=== PATIENT | female | born 1930 | race Caucasian/White ===

== ENCOUNTER 2017-09-14 19:53 | Emergency (ER) | END 2017-09-14 23:43 | disposition home or self-care (01) ==

== ENCOUNTER 2017-11-23 23:40 | Inpatient (IN) | END 2017-11-25 11:15 | disposition home or self-care (01) | DRG 641 ==

== ENCOUNTER 2018-08-24 04:55 | Inpatient (IN) | payer MEDICARE, OTHER ==
[~2018-08-24] VITALS: Ht 152.4 cm; Wt 49.0 kg
[~2018-08-24 04:55] MED LIST: ALBU8.5H8 INH; ALEN70TA5 PO; ASPI-535 PO; BCL80INH INH; CALC-67 PO; DOCU-144 PO; ERGO500014 PO; FER325 PO; FOLI-49 PO; PRED5TAB PO; REMI IV; SIMV10TA PO
[2018-08-24] MEDS ORDERED: ONDANSETRON 4 MG INJ IV STA (05:10)
[2018-08-24] MEDS ORDERED: SOD CHLORIDE 0.9% 1,000 ML IV STA (05:10)
--- NOTE | 2018-08-24 06:15 | ERD ---
ER Documentation Chief Complaint Chief Complaint n/v/d x 3 days, total body pain, severe HPI 88-year-old female with a history of asthma, rheumatoid arthritis, osteoarthritis, hyperlipidemia and hyponatremia presents to the ED for evaluation of total body pain and generalized weakness. History is supplemented by the patient's granddaughter. Patient was her usual state of health until a week ago when she suffered from a fall at home without head injury or loss of consciousness and did not seek medical attention as she felt well. Subsequently she began to have nausea, nonbloody, nonbilious emesis and watery diarrhea for several days but no abdominal pain. Diarrhea resolved with Imodium and there is no further vomiting but continues to be nauseated with decreased p.o. intake. Now with increasing generalized malaise and weakness. Denies headache, focal weakness or numbness. Denies chest pain, palpitations, shortness of breath, cough or hemoptysis. Denies dysuria, polyuria, hematuria or flank pain. No fevers or chills. ROS All systems reviewed and are negative except as per history of present illness. Medications Home Meds Active Scripts Levofloxacin* (Levofloxacin*) 750 Mg Tablet, 750 MG PO DAILY, #7 TAB Prov:AILYN VALDEZ MD 08/27/18 Reported Medications Docusate Sodium* (Doc-Q-Lace*) 100 Mg Capsule, 100 MG PO DAILY, CAP 08/24/18 Ondansetron Hcl* (Zofran*) 4 Mg Tablet, 4 MG PO TID, TAB 08/24/18 Omeprazole* (Omeprazole*) 20 Mg Capsule.dr, 20 MG PO DAILY, #30 CAP 08/24/18 Prednisone* (Prednisone*) 5 Mg Tab, 5 MG PO DAILY, TAB 08/24/18 Folic Acid* (Folic Acid*) 1 Mg Tablet, 1 MG PO DAILY, TAB 08/24/18 Ferrous Sulfate* (Ferrous Sulfate*) 325 Mg Tabec, 325 MG PO BID, TAB 08/24/18 Ergocalciferol (Vitamin D2) (VITAMIN D2) 50,000 Unit Capsule, 96726 UNIT PO Q MON, CAP 08/24/18 Aspirin* (Aspirin* EC) 81 Mg Tablet.dr, 81 MG PO DAILY, TAB 08/24/18 Losartan-Hydrochlorothiazide (Losartan-HCTZ) 50-12.5 Mg Tab, 1 TAB PO DAILY, TAB 08/24/18 Discontinued Reported Medications Infliximab (Remicade) 100 Mg Soln, 100 MG IV 11/23/17 Alendronate Sodium* (Fosamax*) 70 Mg Tablet, 70 MG PO Q7D, #4 TAB 11/23/17 Prednisone* (Prednisone*) 5 Mg Tab, 5 MG PO DAILY, TAB 11/23/17 Ferrous Sulfate* (Ferrous Sulfate*) 325 Mg Tabec, 325 MG PO BID, TAB 11/23/17 Aspirin Ec (Aspir 81) 81 Mg Tablet.dr, 81 MG PO DAILY, #30 TAB 11/23/17 Calcium Carbonate/Vitamin D3* (Os-Tate 500+D*) 1 Tab Tablet, 1 TAB PO BID, TAB 07/19/15 Beclomethasone Dip (Qvar 80) 1 Puff Inha, 1 PUFF INH BID, #1 INHALER RINSE MOUTH AFTER EACH USE 07/19/15 Folic Acid* (Folic Acid*) 1 Mg Tablet, 1 MG PO DAILY, TAB 07/19/15 Ergocalciferol* (Drisdol* (Vitamin D2)) 50,000 Unit Capsule, 12344 UNIT PO Q7D, CAP take 1 tablet by mouth once a week (every Mondays) 07/19/15 Simvastatin* (Zocor*) 10 Mg Tablet, 10 MG PO QHS, #30 TAB 07/19/15 Albuterol Sulfate* (Proair HFA*) 8.5 Gm Hfa.aer.ad, 2 PUFF INH Q4H PRN for WHEEZING AND SOB, #1 INHALER 07/19/15 Discontinued Scripts Docusate Sodium* (Colace*) 100 Mg Capsule, 100 MG PO TID, #30 CAP Prov:STACIE QUINONES MD 07/24/15 Allergies Allergies: Coded Allergies: No Known Allergy (Unverified , 08/24/18) PMhx/Soc Reviewed in chart. As per HPI. History of Surgery: Yes (cholecystectomy, bilateral knee replacement ) Anesthesia Reaction: No Hx Neurological Disorder: No Hx Respiratory Disorders: Yes (asthma) Hx Cardiac Disorders: Yes (HTN) Hx Psychiatric Problems: No Hx Miscellaneous Medical Probl: No Hx Alcohol Use: No Hx Substance Use: No Hx Tobacco Use: No Smoking Status: Never smoker FmHx No family history relevant to presenting complaint. Physical Exam Vitals Temp: 99.9. Pulse: 103. Respirations: 21. Blood pressure 94/51. O2 saturation 99%. Physical Exam Const: Elderly female, ill-appearing in moderate distress. Head: Atraumatic Eyes: Normal Conjunctiva ENT: Normal External Ears, Nose and Mouth. Mucous membranes are dry. Neck: Full range of motion. No JVD. Nontender. No meningismus. Resp: Breath sounds are diminished especially at the bases left greater than right with crackles but no wheezing. Cardio: Tachycardic. Regular rate and rhythm, no murmurs Abd: Soft, non tender, non distended. No rebound or guarding. Normal bowel sounds Skin: No petechiae or rashes Back: No midline or flank tenderness Ext: No cyanosis, or edema Neur: Awake and alert. No facial droop. Normal speech. No focal deficit observed. Psych: Normal Mood and Affect Result Diagram: 08/27/18 0557 08/27/18 0557 Results 24 hrs Laboratory Tests Test 08/24/18 05:50 08/24/18 05:52 08/24/18 06:54 08/24/18 07:33 Prothrombin Time 12.8 Sec Prothrombin Time 1.0 Ratio INR International 0.95 Normalized Ratio Activated 26.4 Sec Partial Thrombopl ast Time White Blood Count 24.9 10^3/ul Red Blood Count 3.81 10^6/ul Hemoglobin 11.9 g/dl Hematocrit 33.3 % Mean Corpuscular 87.4 fl Volume Mean Corpuscular 31.2 pg Hemoglobin Mean Corpuscular 35.7 g/dl Hemoglobin Concen t Red Cell 13.3 % Distribution Width Platelet Count 220 10^3/UL Mean Platelet 11.0 fl Volume Immature 1.300 % Granulocytes % Neutrophils % % Segmented 80 % Neutrophils % (Manual) Band Neutrophils 8 % % (Manual) Lymphocytes % % Lymphocytes % 4 % (Manual) Monocytes % % Monocytes % 8 % (Manual) Eosinophils % % Basophils % % Nucleated Red 0.0 /100WBC Blood Cells % Immature 0.320 10^3/ul Granulocytes # Neutrophils # 10^3/ul Neutrophils # 20.4 10^3/ul (Manual) Band Neutrophils 1.9 10^3/ul # Lymphocytes 0.9 10^3/ul (Manual) Lymphocytes # 10^3/ul Monocytes # 10^3/ul Monocytes # 1.9 10^3/ul (Manual) Eosinophils # 10^3/ul Basophils # 10^3/ul Nucleated Red 10^3/ul Blood Cells # Platelet Estimate NORMAL Polychromasia 1+ Poikilocytosis 3+ Sodium Level 123 mmol/L Potassium Level 3.9 mmol/L Chloride Level 85 mmol/L Carbon Dioxide 24 mmol/L Level Anion Gap 14 Blood Urea 66 mg/dl Nitrogen Creatinine 1.85 mg/dl Est Glomerular mL/min Filtrat Rate mL/min Glucose Level 96 mg/dl Calcium Level 7.5 mg/dl Total Bilirubin 0.8 mg/dl Direct Bilirubin 0.00 mg/dl Indirect 0.8 mg/dl Bilirubin Aspartate Amino 35 IU/L Transf (AST/SGOT) Alanine 54 IU/L Aminotransferase (ALT/SGPT) Alkaline 152 IU/L Phosphatase Total Protein 7.2 g/dl Albumin 3.2 g/dl Globulin 4.00 g/dl Albumin/Globulin 0.80 Ratio Lipase 110 U/L Free Thyroxine 2.39 ng/dl Urine Color YELLOW Urine Clarity CLEAR Urine pH 5.0 Urine Specific 1.009 [place] Urine Ketones NEGATIVE mg/dL Urine Nitrite NEGATIVE mg/dL Urine Bilirubin NEGATIVE mg/dL Urine NEGATIVE mg/dL Urobilinogen Urine Leukocyte NEGATIVE Armaan/ul Esterase Urine Microscopic 1 /HPF RBC Urine Microscopic 1 /HPF WBC Urine Hemoglobin 1+ mg/dL Urine Glucose NEGATIVE mg/dL Urine Total NEGATIVE mg/dl Protein POC Venous 2.0 mmol/L Lactate Test 08/24/18 07:53 Lactic Acid Level 2.3 mmol/L Troponin I 0.021 ng/ml Current Medications Medications Dose Sig/Tiffany Start Time Status Last (Trade) Ordered Route PRN Stop Time Admin Dose Reason Admin Sodium 1,000 ml @ Q1H STAT 08/24/18 DC 08/24/18 Chloride 1,000 mls/hr IV 05:10 06:04 08/24/18 06:09 Ondansetron 4 mg ONCE STAT 08/24/18 DC 08/24/18 HCl (Zofran IV 05:10 06:04 Inj) 08/24/18 05:12 Sodium 1,410 ml BOLUS OVER 2 08/24/18 DC 08/24/18 Chloride HOURS STAT 07: 07:46 (NS) IV* 08/24/18 07:21 Sodium 1,370 ml BOLUS OVER 2 08/24/18 DC 08/24/18 Chloride HOURS STAT 07:19 07:47 (NS) IV* 08/24/18 07:21 Cefepime HCl 50 ml @ ONCE STAT 08/24/18 DC 08/24/18 100 mls/hr IVPB 07:19 07:47 08/24/18 07:48 Vancomycin 250 ml @ ONCE ONCE 08/24/18 DC 08/24/18 HCl 125 mls/hr IVPB 07:30 08:17 08/24/18 09:29 100 mg ONCE ONCE 08/24/18 DC 08/24/18 Hydrocortison IV 09:00 09:00 e 08/24/18 09:01 (Solu-Cortef) Procedures/MDM DOCUMENTS REVIEWED: ED nurse, prior ED, prior records EKG: Time: . Sinus tachycardia. Ventricular rate 103. No acute ST elevation or depression. No ectopy. No axis deviation. Interpretation is limited due to baseline artifact. My Interpretation IMAGING: Chest AP portable. Cardiac silhouette is normal. Bibasilar infiltrates left greater than right with small left greater than right pleural effusion. Aortic calcifications. MEDICAL DECISION MAKIN-year-old female with a history of asthma, rheumatoid arthritis, osteoarthritis, hyperlipidemia and hyponatremia presents to the ED for evaluation of total body pain and generalized weakness. CBC reveals leukocytosis with a percent bands Mild anemia with H/H 11.9/33.3. Chemistry significant for hyponatremia with markedly elevated BUN/creatinine of 66/1.85 markedly increased from 5/0.61 on 11/25/2017. Liver function tests are unremarkable for hyperbilirubinemia or transaminitis. Troponin is not elevated. Tpwhi-ue-ngvy lactate is 2.0 however lactate from the lab was 2.3 mmol/L. Urinalysis shows no evidence of infection. Chest x-ray reveals bibasilar infiltrates consistent with pneumonia. Patient with multiple criteria for systemic inflammatory syndrome and severe sepsis secondary to pneumonia. No h ypotension, lactate greater than 4.0 mmol/L or criteria for septic shock. Within 3 hours of arrival bundle therapy initiated with normal saline 30 cc/kg fluid bolus and antibiotics after cultures. Abdominal exam is benign without significant tenderness, rebound, guarding, signs of peritonitis and occult intra-abdominal process hence advanced imaging is deferred. No evidence of urinary tract infection or pyelonephritis. Acute renal failure with markedly elevated BUN/creatinine above baseline likely secondary to dehydration. No chest pain, ischemic EKG changes, elevated troponin or acute coronary syndrome. is stress dose of steroids, Solu-Cortef 100 mg IV given as patient is immunosuppressed on chronic steroid therapy and Infliximab. Patient's infectious symptoms have not stabilized and the patient is at risk of rapid decompensation. The patient will be admitted to telemetry for careful hydration, antibiotic therapy, and infectious source control. SEPSIS DOCUMENTATION: SIRS Criteria: Tachycardia, tachypnea and leukocytosis Severe Sepsis criteria: Infectious source: Pneumonia End organ damage indicated by: Lactate > 2.0 mmol/L Sepsis Management: Time of recognition of severe sepsis: 07:53 Within 3 hours of recognition: Blood cultures x 2 before broad-spectrum antibiotics: Yes 30 ml/kg NS bolus Completed Initial lactate 2.3 mmol/L Repeat lactate 1.0 mmol/L Septic Shock Assessment: Any lactic acid > 4.0 No Persistent hypotension (SBP < 90 or 40 mmHg drop, MAP < 65) despite 30 mL/kg IV fluid bolus: No A focused sepsis perfusion/reperfusion reassessment examination was performed post 30ml/kg bolus @09:15: Temp 98.2, BP 97/61, HR 84, RR 18, Pox 99% Persistent Hypotension Treatment: Comfort care No Hypotension caused by: pt. baseline, med-induced, erroneous value, condition other than infection: No Refusal by patient/decision maker for: blood draw, IVF, Antibiotics, Pressors: No Central line Not indicated Vasopressor started No Accepting Care Team Current data and ongoing care discussed. PATIENT CARE TRANSITIONED: Time: 09:40, Dr. Kay. Outstanding Data: None Critical Care Time: 35 minutes Treatments/Evaluations: Close monitoring and treatment of unstable vital signs, cardiorespiratory, and neurologic status, while maintaining tight balance of fluid, respiratory, and cardiac interventions. This includes the administration of emergency fluid management while maintaining close respiratory support as well as the provision of immediate and broad-spectrum antibiotic therapy, while performing a simultaneous assessment for possible sources in order to direct targeted therapy. This time includes discussing the case with the patient and the patient's family. This time also includes the consideration for invasive and chemical support to prevent cardiopulmonary collapse. This time does not include all procedures stated elsewhere in this record. This time also includes reviewing old records, labs and radiological studies. This time includes examining and re-examining the patient. Additionally, this time also includes arranging care with admitting and consulting physicians. Counseled patient and family regarding diagnosis, diagnostic results and plan for admission. Departure Diagnosis: Primary Impression: Weakness Additional Impressions: Severe sepsis Pneumonia Pneumonia type: due to unspecified organism Laterality: bilateral Lung location: lower lobe of lung Qualified Codes: J18.1 - Lobar pneumonia, unspecified organism Acute kidney injury Dehydration Nausea and vomiting Vomiting type: unspecified Vomiting Intractability: non-intractable Qualified Codes: R11.2 - Nausea with vomiting, unspecified Immunosuppressed status Rheumatoid arthritis Rheumatoid arthritis location: multiple sites Rheumatoid factor presence: unspecified presence Qualified Codes: M06.9 - Rheumatoid arthritis, u nspecified Condition: Serious SHIRLEY HERRON MD August 24, 2018 06:15
[2018-08-24] MEDS ORDERED: CEFEPIME 2GM/50 ML (PMX) 50 ML IVPB STA (07:19)
[2018-08-24] MEDS ORDERED: SODIUM CHLORIDE 0.9% 1L BAG IV* STA ×2 (07:19)
[2018-08-24] MEDS ORDERED: VANCOMYCIN 1 GM (PMX) 250 ML IVPB ONE (07:30)
[2018-08-24] MEDS ORDERED: HYDROCORTISONE 100 MG INJ IV ONE (09:00)
[2018-08-24] MEDS ORDERED: ONDANSETRON 4 MG INJ IV PRN (10:00)
[2018-08-24] MEDS ORDERED: ACETAMINOPHEN 325 MG TAB PO PRN ×2 (10:00→13:30)
[2018-08-24] MEDS ORDERED: ASPI-817 PO (10:17)
[2018-08-24] MEDS ORDERED: LOSA1TAB22 PO (10:17)
[2018-08-24] MEDS ORDERED: FER325 PO (10:18)
[2018-08-24] MEDS ORDERED: FOLI-49 PO (10:18)
[2018-08-24] MEDS ORDERED: ERGO500013 PO (10:18)
[2018-08-24] MEDS ORDERED: PRED5TAB PO (10:19)
[2018-08-24] MEDS ORDERED: ONDA4TAB8 PO (10:19)
[2018-08-24] MEDS ORDERED: OMEP20CA16 PO (10:19)
[2018-08-24] MEDS ORDERED: DOCU-221 PO (10:20)
--- NOTE | 2018-08-24 13:17 | HP ---
Date/Time of Note Date/Time of Note DATE: 08/24/18 TIME: 13:13 Assessment/Plan VTE Prophylaxis SCD applied (from Nsg): No SCD contraindicated: other Pharmacological prophylaxis: heparin Lines/Catheters IV Catheter Type (from Nrsg): Saline Lock Assessment/Plan Hospital Course Assessment plan: 88-year-old female coming in with weakness diarrhea, nausea vomiting for the last 3 to 4 days, found with renal insufficiency and systemic inflammatory response syndrome secondary to upper respiratory infection. # SIRS -likely secondary to pneumonia which is causing her weakness and dehydration symptoms along with likely her nausea vomiting symptoms. -Admit patient, low-dose IV fluids, broad-spectrum antibodies, follow-up TSH A1c lipid panel -We will get PT OT and speech therapy consult as well, Tylenol PRN pain fevers -Monitor labs daily including CBC #Rheumatoid arthritis: -Continue steroids, monitor for now, PT consult #Asthma: No present issues -Monitor, duo nebs as needed #Osteoporosis: No present issues -PT, OT eval, pain medicines as needed #Likely high cholesterol: -Follow-up with panel, continue statin Result Diagram: 08/24/18 0552 08/24/18 0552 Results 24hrs Laboratory Tests Test 08/24/18 05:50 08/24/18 05:52 08/24/18 06:54 08/24/18 07:33 Prothrombin Time 12.8 Prothrombin Time 1.0 Ratio INR International 0.95 Normalized Ratio Activated 26.4 Partial Thromboplast Time White Blood Count 24.9 #H Red Blood Count 3.81 L Hemoglobin 11.9 L Hematocrit 33.3 L Mean Corpuscular 87.4 Volume Mean Corpuscular 31.2 Hemoglobin Mean Corpuscular 35.7 Hemoglobin Concent Red Cell 13.3 Distribution Width Platelet Count 220 Mean Platelet Volume 11.0 H Immature 1.300 H Granulocytes % Neutrophils % Segmented 80 H Neutrophils % (Manual) Band Neutrophils % 8 H (Manual) Lymphocytes % Lymphocytes % 4 L (Manual) Monocytes % Monocytes % (Manual) 8 Eosinophils % Basophils % Nucleated Red Blood 0.0 Cells % Immature 0.320 H Granulocytes # Neutrophils # Neutrophils # 20.4 H (Manual) Band Neutrophils # 1.9 H Lymphocytes (Manual) 0.9 Lymphocytes # Monocytes # Monocytes # (Manual) 1.9 H Eosinophils # Basophils # Nucleated Red Blood Cells # Platelet Estimate NORMAL Polychromasia 1+ Poikilocytosis 3+ Sodium Level 123 L Potassium Level 3.9 Chloride Level 85 L Carbon Dioxide Level 24 Anion Gap 14 H Blood Urea Nitrogen 66 H Creatinine 1.85 H Est Glomerular Filtrat Rate mL/min Glucose Level 96 Calcium Level 7.5 L Total Bilirubin 0.8 Direct Bilirubin 0.00 Indirect Bilirubin 0.8 Aspartate Amino 35 Transf (AST/SGOT) Alanine 54 Aminotransferase (AL T/SGPT) Alkaline Phosphatase 152 H Total Protein 7.2 Albumin 3.2 L Globulin 4.00 H Albumin/Globulin 0.80 Ratio Lipase 110 Urine Color YELLOW Urine Clarity CLEAR Urine pH 5.0 Urine Specific 1.009 [place] Urine Ketones NEGATIVE Urine Nitrite NEGATIVE Urine Bilirubin NEGATIVE Urine Urobilinogen NEGATIVE Urine Leukocyte NEGATIVE Esterase Urine Microscopic 1 RBC Urine Microscopic 1 WBC Urine Hemoglobin 1+ H Urine Glucose NEGATIVE Urine Total Protein NEGATIVE POC Venous Lactate 2.0 Test 08/24/18 07:53 Lactic Acid Level 2.3 *H Troponin I 0.021 HPI/ROS Admit Date/Time Admit Date/Time Hx of Present Illness 80-year-old female past medical history hard of hearing, rheumatoid arthritis, also arthritis, prior hyponatremia, high cholesterol, asthma who presents with weakness and dehydration along with nausea vomiting for the last 4 days. Per family member, patient apparently fell at home last Sunday as she lives by herself she called her granddaughter who came and watched her for the another day or so. Patient took medications over the next 3 days such as Advil with minimal relief of symptoms. She also had decreased p.o. intake and decreased appetite for the last 1 to 2 days and also had some diarrhea. Family gave her Imodium with some relief of those symptoms. Patient was still feeling weak overall so decided to come into the ER. When she arrived she was found with elevated white blood cell count 24.3. Also showing signs of renal insufficiency as creatinine was significantly elevated. She received some IV fluids, pain control medications, and IV antibiotics in the ER. PMH/Family/Social Past Medical History Medications Current Medications Ondansetron HCl (Zofran Inj) 4 mg ER BRIDGE PRN IV NAUSEA/VOMITING; Start 08/24/18 at 10:00; Stop 08/25/18 at 09:59 Acetaminophen (Tylenol Tab) 650 mg ER BRIDGE PRN PO .MILD PAIN 1-3 OR TEMP; Start 08/24/18 at 10:00; Stop 08/25/18 at 09:59 Coded Allergies: No Known Allergy (Unverified , 08/24/18) Past Surgical History Past Surgical Hx: cholecystectomy, other (Bilateral knee replacement) Family History Significant Family History: no pertinent family hx Social History Alcohol Use: none Smoking Status: Never smoker Drug Use: none Exam/Review of Systems Vital Signs Vitals Vital Signs Date Temp Pulse Resp B/P (MAP) Pulse Ox O2 O2 Flow FiO2 Time Delivery Rate 08/24/18 91 17 97/61 (73) 99 Room Air 10:23 08/24/18 98.2 09:01 Exam Exam Gen: Lying in bed, no acute distress Head: Atraumatic Eyes: Normal Conjunctiva ENT: Normal External Ears, Nose and Mouth. Neck: Full range of motion. No meningismus. Resp: Clear to auscultation bilaterally Cardio: Regular rate and rhythm, no murmurs Abd: Soft, non tender, non distended. Normal bowel sounds Ext: No cyanosis, or edema Neuro: No focal deficits MIRIAM CARLSON August 24, 2018 13:17
[2018-08-24] MEDS ORDERED: HYDROCODONE/APAP (5/325) TAB PO PRN (13:30)
[2018-08-24] MEDS ORDERED: LORAZEPAM 2 MG INJ IV PRN (13:30)
[2018-08-24] MEDS ORDERED: hydrALAzine 20 MG INJ IV PRN (13:30)
[2018-08-24] MEDS ORDERED: VANCOMYCIN IV PER PHARMACY XX SCH (13:30)
[2018-08-24] MEDS ORDERED: NITROGLYCERIN (SL) 0.4 MG TAB SL PRN (13:30)
[2018-08-24] MEDS ORDERED: DOCUSATE SODIUM 100 MG CAP PO PRN (13:30)
[2018-08-24] MEDS ORDERED: morphine 2 MG INJ IV PRN (13:30)
[2018-08-24] MEDS ORDERED: MAGNESIUM HYDROXIDE 30ML CUP PO PRN (13:30)
[2018-08-24] MEDS ORDERED: NACL 0.9% 3 ML SYG IV SCH (13:30)
[2018-08-24] MEDS ORDERED: ALBUTEROL/IPRATROPIUM (NEB) 3 ML AMP HHN PRN (13:30)
[2018-08-24] MEDS: PIPER-TAZO 2.25 GM (PMX) 50 ML IVPB SCH ×2 (14:12→21:21)
[2018-08-24 16:09] VITALS: BP 96/53; PULSE 92; RESP 18
[2018-08-24 16:11] VITALS: Ht 152.4 cm; Wt 49.0 kg
[2018-08-24] MEDS: SOD CHLORIDE 0.45% 1,000 ML IV SCH (16:42)
[2018-08-24 17:01] VITALS: PULSE 88
[2018-08-24] MEDS ORDERED: PENDING SANTYL ORDER FOR WOUND CARE XX PRN (18:30)
[2018-08-24 19:55] VITALS: BP 111/70; PULSE 89; RESP 17
[2018-08-24 20:49] VITALS: PULSE 88
[2018-08-24] MEDS: FERROUS SULFATE (EC) 325 MG TAB PO SCH (21:21)
[2018-08-24] MEDS: HEPARIN 5,000 UNIT/1 ML VIAL SC SCH (21:22)
[2018-08-25] VITALS (12 sets, daily range): BP systolic 93–112; BP diastolic 52–69; PULSE 65–87; RESP 16–18
[2018-08-25] MEDS: SOD CHLORIDE 0.45% 1,000 ML IV SCH ×3 (02:29→20:00)
[2018-08-25] MEDS: PIPER-TAZO 2.25 GM (PMX) 50 ML IVPB SCH ×3 (05:45→20:34)
[2018-08-25] MEDS: PANTOPRAZOLE (EC) 40 MG TAB PO SCH (06:15)
[2018-08-25] MEDS: ASPIRIN (EC) 81 MG TAB PO SCH (08:04)
[2018-08-25] MEDS: FERROUS SULFATE (EC) 325 MG TAB PO SCH ×2 (08:04→20:34)
[2018-08-25] MEDS: FOLIC ACID 1 MG TAB PO SCH (08:05)
[2018-08-25] MEDS: predniSONE 5 MG TAB PO SCH (08:05)
[2018-08-25] MEDS: HEPARIN 5,000 UNIT/1 ML VIAL SC SCH ×2 (08:10→20:36)
[2018-08-25] MEDS ORDERED: POTASSIUM CHLORIDE (SR) 20 MEQ TAB PO STA (08:58)
[2018-08-25] MEDS ORDERED: NON-FORMULARY/PATIENT OWN MED (Omeprazole* 20 MG) PO SCH (09:00)
[2018-08-25] MEDS ORDERED: POTASSIUM CHLORIDE 20 MEQ POWDER FOR ORAL SOLN PO SCH (09:30)
[2018-08-25] MEDS: VANCOMYCIN 500 MG (PMX) 100 ML IVPB SCH (11:11)
[2018-08-25] MEDS: ONDANSETRON 4 MG INJ IV PRN (12:28)
--- NOTE | 2018-08-25 13:58 | RADRPT ---
Echocardiogram Report Patient Name: CORTNEY SHEPHERDPatient ID: [id number] : 1930 (88y 2m)Study Date: 08/25/2018 10:43:52 AM Gender: FAccession #: [id number] Tech: [facility] [place] Location: Ref.Physician: MIRIAM CARLSON Height(Cm): 152 BSA: 1.4Weight(Kg): 46.7 Quality: Technically Difficult StudyAccount #: Procedures: Echocardiographic Report: Transthoracic echocardiogram with 2D, M-Mode, and Doppler examination, poor subcostal images. Indications: Shortness of breath. Measurements: 2D/M Mode Doppler Measurement Value Normal Range Measurement Value Normal Range LVIDd 2D 3.1 [ 3.8 - 5.2 ] cm PRAKASH VTI 1.8 [ 2.0 - 4.0 ] cm2 LVIDs 2D 1.9 [ 2.2 - 3.5 ] cm AV Mean Lexa 1.5 [ 70.0 - 90.0 ] cm/sec LVPWd 2D 1.0 [ 0.6 - 0.9 ] cm AV Mean PG 10.0 [ 2.0 - 4.0 ] mmHg IVSd 2D 1.0 [ 0.6 - 0.9 ] cm AV VTI 44.9 cm AoR Diam 2D 2.9 [ 2.3 - 3.1 ] cm LVOT Mean Lexa 0.7 [ 60.0 - 80.0 ] cm/sec EDV 2D 38.5 [ 46.0 - 106.0 ] ml LVOT Mean PG 3.0 [ 1.0 - 3.0 ] mmHg ESV 2D 10.9 [ 14.0 - 42.0 ] ml LVOT Peak Lexa 1.1 [ 70.0 - 110.0 ] cm/sec EF 2D 71.7 [ 54.0 - 74.0 ] percent LVOT Peak PG 5.0 [ 2.0 - 6.0 ] mmHg LA Dimen 2D 2.1 [ 2.7 - 3.8 ] cm LVOT VTI 25.1 [ 20.0 - 30.0 ] cm LVOT Diam 2.0 [ 2.1 - 2.5 ] cm MV E Peak Lexa 1.1 [ 60.0 - 130.0 ] cm/sec MV A Peak Lexa 0.7 [ 100.0 - 120.0 ] cm/se c MV E/A 1.6 [ 0.8 - 1.5 ] ratio MV PHT 70.0 [ 20.0 - 100.0 ] msec MV Decel Time 240 [ 104 - 258 ] msec MV Decel Kay 5 Lat E` Lexa 0.1 [ 10.0 - 15.0 ] cm/sec Lateral E/E` 18.5 [ 1.0 - 2.0 ] ratio Med E` Lexa 0.0 cm/sec MV E/A 1.6 [ 0.8 - 1.5 ] ratio MVA PHT 3.1 [ 2.0 - 4.0 ] cm2 TR Peak Lexa 2.5 [ 100.0 - 280.0 ] cm/se c TR Peak PG 25.0 mmHg PV Peak Lexa 1.0 [ 40.0 - 80.0 ] cm/sec PV Peak PG 4.0 mmHg RVSP 35.0 [ 10.0 - 36.0 ] mmHg RA Pressure 10.0 mmHg Findings: Left Ventricle: Normal left ventricular systolic function. Normal left ventricular cavity size. Mild concentric left ventricular hypertrophy. Ejection fraction is visually estimated at 70 %. Tissue Doppler/Mitral Doppler indices are most probably consistent with pseudonormalization with mildly elevated left atrial pressure (Stage II diastolic dysfunction), patient did not Valsalva. E/E'= 19. Right Ventricle: Normal right ventricular size. Normal right ventricular systolic function. Left Atrium: The left atrium is normal in size. Right Atrium: The right atrium is normal in size. Atrial Septum: Not well visualized. Mitral Valve: Mild mitral leaflet calcification. Mild mitral annular calcification, mild calcification on chordal structures noted as well. Trace mitral regurgitation. Aortic Valve: Mild aortic stenosis. Aortic valve Max velocity 2.20 m/sec. Max PG 19.00 mmHg. Mean PG 10.00 mmHg. Aortic valve area 1.70 cm2. Aortic cusps appear mildly calcified. Trileaflet aortic valve. Tricuspid Valve: Normal appearance of the tricuspid valve. Estimated peak PA systolic pressure 35 mmHg. There is mild tricuspid regurgitation. Pulmonic Valve: Normal pulmonic valve appearance. No evidence of pulmonic regurgitation. Pericardium: Normal pericardium with no significant pericardial effusion. Pleural effusion seen. Aorta: Ascending aorta is dilated. Ascending Aorta 3.70 cm. IVC: Normal size and normal respiratory collapse consistent with normal right atrial pressure. Pulmonary Artery: Normal pulmonary artery size. Conclusions: Normal left ventricular systolic function. Normal left ventricular cavity size. Mild concentric left ventricular hypertrophy. Ejection fraction is visually estimated at 70 %. Tissue Doppler/Mitral Doppler indices are most probably consistent with pseudonormalization with mildly elevated left atrial pressure (Stage II diastolic dysfunction), patient did not Valsalva. E/E'= 19. The left atrium is normal in size. Mild mitral leaflet calcification. Mild mitral annular calcification, mild calcification on chordal structures noted as well. Trace mitral regurgitation. Mild aortic stenosis. Aortic valve Max velocity 2.20 m/sec. Max PG 19.00 mmHg. Mean PG 10.00 mmHg. Aortic valve area 1.70 cm2. Aortic cusps appear mildly calcified. Trileaflet aortic valve. Normal appearance of the tricuspid valve. Estimated peak PA systolic pressure 35 mmHg. There is mild tricuspid regurgitation. Normal size and normal respiratory collapse consistent with normal right atrial pressure. Electronically Signed By: Myron Pak 2018-08-25 13:58:04 PDT
--- NOTE | 2018-08-25 16:40 | PN ---
Date/Time of Note Date/Time of Note DATE: 08/25/18 TIME: 16:36 Assessment/Plan VTE Prophylaxis Risk score (from Ns)>0 risk: 4 SCD applied (from [facility]): No SCD contraindicated: other Pharmacological prophylaxis: heparin Lines/Catheters IV Catheter Type (from [facility]): Peripheral IV Urinary Cath still in place: No Assessment/Plan Hospital Course S: Less weakness and shortness of breath symptoms, still waiting to be seen by PT and OT teams. Echocardiogram performed, results noted which did not show any acute abnormalities. O: VS- see below PE: Gen: Lying in bed, no acute distress Head: Atraumatic Eyes: Normal Conjunctiva ENT: Normal External Ears, Nose and Mouth. Neck: Full range of motion. No meningismus. Resp: Clear to auscultation bilaterally Cardio: Regular rate and rhythm, no murmurs Abd: Soft, non tender, non distended. Normal bowel sounds Ext: No cyanosis, or edema Neuro: No focal deficits 2D ECHO: Conclusions: Normal left ventricular systolic function. Normal left ventricular cavity size. Mild concentric left ventricular hypertrophy. Ejection fraction is visually estimated at 70 %. Tissue Doppler/Mitral Doppler indices are most probably consistent with pseudonormalization with mildly elevated left atrial pressure (Stage II diastolic dysfunction), patient did not Valsalva. E/E'= 19. The left atrium is normal in size. Mild mitral leaflet calcification. Mild mitral annular calcification, mild calcification on chordal structures noted as well. Trace mitral regurgitation. Mild aortic stenosis. Aortic valve Max velocity 2.20 m/sec. Max PG 19.00 mmHg. Mean PG 10.00 mmHg. Aortic valve area 1.70 cm2. Aortic cusps appear mildly calcified. Trileaflet aortic valve. Normal appearance of the tricuspid valve. Estimated peak PA systolic pressure 35 mmHg. There is mild tricuspid regurgitation. Normal size and normal respiratory collapse consistent with normal right atrial pressure. Assessment plan: 88-year-old female coming in with weakness diarrhea, nausea vomiting for the last 3 to 4 days, found with renal insufficiency and systemic inflammatory response syndrome secondary to upper respiratory infection. # SIRS -slowly improving as white blood cell count is trending down, likely secondary to pneumonia which is causing her weakness and dehydration symptoms along with likely her nausea vomiting symptoms. -For now continue low-dose IV fluids, broad-spectrum antibodies, -Follow-up recommendations from PT OT and speech therapy consults as well, Tylenol PRN pain fevers -Monitor labs daily including CBC # VIANNEY -likely secondary to the SIRS and pneumonia, prerenal, again BUN and creatinine are trending down now -Monitor BUN/creatinine levels, continue IV fluids -If for some reason worsens, consider renal consult #Rheumatoid arthritis: -Continue steroids, monitor for now, PT consult #Asthma: No present issues -Monitor, duo nebs as needed #Osteoporosis: No present issues -Again, pending PT, OT eval, pain medicines as needed #Likely high cholesterol: -Follow-up with panel, continue statin Result Diagram: 08/25/18 0653 08/25/18 0653 Results 24hrs Laboratory Tests Test 08/24/18 17:18 08/24/18 20:28 08/25/18 01:18 08/25/18 06:53 Lactic Acid Level 1.0 1.1 0.9 1.2 White Blood Count 14.0 #H Red Blood Count 3.33 L Hemoglobin 10.2 L Hematocrit 29.7 L Mean Corpuscular 89.2 Volume Mean Corpuscular 30.6 Hemoglobin Mean Corpuscular 34.3 Hemoglobin Concent Red Cell 13.6 Distribution Width Platelet Count 214 Mean Platelet Volume 10.1 Immature 0.900 H Granulocytes % Neutrophils % 69.7 Lymphocytes % 15.9 Monocytes % 13.4 H Eosinophils % 0.0 Basophils % 0.1 Nucleated Red Blood 0.0 Cells % Immature 0.120 H Granulocytes # Neutrophils # 9.8 H Lymphocytes # 2.2 Monocytes # 1.9 H Eosinophils # 0.0 Basophils # 0.0 Nucleated Red Blood 0.0 Cells # Sodium Level 136 Potassium Level 2.7 *L Chloride Level 99 # Carbon Dioxide Level 27 Anion Gap 10 Blood Urea Nitrogen 36 #H Creatinine 1.05 H Est Glomerular Filtrat Rate mL/min Glucose Level 94 Hemoglobin A1c 5.5 Calcium Level 7.3 L Phosphorus Level 2.6 Magnesium Level 1.8 Triglycerides Level 71 Cholesterol Level 83 L LDL Cholesterol, 46 Calculated HDL Cholesterol 23 L Cholesterol/HDL 3.6 Ratio Thyroid Stimulating 0.299 L Hormone (TSH) Exam/Review of Systems Exam Vitals Vital Signs Date Temp Pulse Resp B/P (MAP) Pulse Ox O2 O2 Flow FiO2 Time Delivery Rate 08/25/18 78 12:47 08/25/18 98.0 18 100/52 100 11:48 (68) 08/24/18 Room Air 13:56 Intake and Output 08/24/18 08/24/18 08/25/18 1515:00 23:00 07:00 IntakeIntake Total 350 ml 300 ml BalanceBalance 350 ml 300 ml Results Results 24hrs Laboratory Tests Test 08/24/18 17:18 08/24/18 20:28 08/25/18 01:18 08/25/18 06:53 Lactic Acid Level 1.0 1.1 0.9 1.2 White Blood Count 14.0 #H Red Blood Count 3.33 L Hemoglobin 10.2 L Hematocrit 29.7 L Mean Corpuscular 89.2 Volume Mean Corpuscular 30.6 Hemoglobin Mean Corpuscular 34.3 Hemoglobin Concent Red Cell 13.6 Distribution Width Platelet Count 214 Mean Platelet Volume 10.1 Immature 0.900 H Granulocytes % Neutrophils % 69.7 Lymphocytes % 15.9 Monocytes % 13.4 H Eosinophils % 0.0 Basophils % 0.1 Nucleated Red Blood 0.0 Cells % Immature 0.120 H Granulocytes # Neutrophils # 9.8 H Lymphocytes # 2.2 Monocytes # 1.9 H Eosinophils # 0.0 Basophils # 0.0 Nucleated Red Blood 0.0 Cells # Sodium Level 136 Potassium Level 2.7 *L Chloride Level 99 # Carbon Dioxide Level 27 Anion Gap 10 Blood Urea Nitrogen 36 #H Creatinine 1.05 H Est Glomerular Filtrat Rate mL/min Glucose Level 94 Hemoglobin A1c 5.5 Calcium Level 7.3 L Phosphorus Level 2.6 Magnesium Level 1.8 Triglycerides Level 71 Cholesterol Level 83 L LDL Cholesterol, 46 Calculated HDL Cholesterol 23 L Cholesterol/HDL 3.6 Ratio Thyroid Stimulating 0.299 L Hormone (TSH) Medications Medication Current Medications IV Flush (NS 3 ml) 3 ml PER PROTOCOL IV ; Start 08/24/18 at 13:30 Ondansetron HCl (Zofran Inj) 4 mg Q6H PRN IV NAUSEA/VOMITING Last administered on 08/25/18at 12:28; Admin Dose 4 MG; Start 08/24/18 at 13:30 Acetaminophen (Tylenol Tab) 650 mg Q6H PRN PO .PAIN 1-3 OR TEMP; Start 08/24/18 at 13:30 Acetaminophen/ Hydrocodone Bitart ([place] (5/325)) 1 tab Q6H PRN PO .MOD PAIN 4- 6; Start 08/24/18 at 13:30 Morphine Sulfate (morphine) 2 mg Q4H PRN IV .SEVERE PAIN 7-10; Start 08/24/18 at 13:30 Docusate Sodium (Colace) 100 mg Q12H PRN PO .CONSTIPATION; Start 08/24/18 at 13:30 Magnesium Hydroxide (Milk Of Mag) 30 ml DAILY PRN PO .CONSTIPATION; Start 08/24/18 at 13:30 Heparin Sodium (Porcine) (Heparin (5000 Units/1ml)) 5,000 unit Q12 SC Last administered on 08/25/18at 08:10; Admin Dose 5,000 UNIT; Start 08/24/18 at 21:00 Sodium Chloride 1,000 ml @ 75 mls/hr [id number] IV Last administered on 08/24/18at 16:42; Admin Dose 75 MLS/HR; Start 08/24/18 at 13:09 Lorazepam (Ativan) 0.5 mg Q6H PRN IV ANXIETY; Start 08/24/18 at 13:30 Albuterol/ Ipratropium (Duoneb) 3 ml Q4H RESP THERAPY PRN HHN SHORTNESS OF BREATH; Start 08/24/18 at 13:30 Piperacillin Sod/ Tazobactam Sod 50 ml @ 200 mls/hr Q8H IVPB Last administered on 08/25/18at 12:32; Admin Dose 200 MLS/HR; Start 08/24/18 at 13:30 Vancomycin HCl (Vanco Iv Per Pharmacy) VANCOMYCIN PER PHARMACY NOTE XX ; Start 08/24/18 at 13:30 Hydralazine HCl (Apresoline) 10 mg Q6H PRN IV ELEVATED BLOOD PRESSURE; Start 08/24/18 at 13:30 Nitroglycerin (Nitroglycerin (Sl Tab) 0.4 Mg) 1 tab Q5M PRN SL ANGINA; Start at 13:30 Aspirin (Halfprin) 81 mg DAILY PO Last administered on 08/25/18at 08:04; Admin Dose 81 MG; Start 08/25/18 at 09:00 Ferrous Sulfate (Ferrous Sulfate (Ec)) 325 mg BID PO Last administered on 08/25/18at 08:04; Admin Dose 325 MG; Start 08/24/18 at 21:00 Folic Acid (Folic Acid) 1 mg DAILY PO Last administered on 08/25/18 08:05; Admin Dose 1 MG; Start 08/25/18 at 09:00 Prednisone (Prednisone) 5 mg DAILY PO Last administered on 08/25/18 08:05; Admin Dose 5 MG; Start 08/25/18 at 09:00 Pantoprazole (Protonix Tab) 40 mg DAILY@06 PO Last administered on 08/25/18at 06:15; Admin Dose 40 MG; Start 08/25/18 at 06:00 Vancomycin HCl 100 ml @ 100 mls/hr Q24H IVPB Last administered on 08/25/18at 11:11; Admin Dose 100 MLS/HR; Start 08/25/18 at 12:00 Miscellaneous Information (Pending [facility] Order For Wound Care) This patient bethea... PRN PRN XX WOUND CARE; Start 08/24/18 at 18:30 MIRIAM CARLSON August 25, 2018 16:40
[2018-08-26] VITALS (12 sets, daily range): BP systolic 100–110; BP diastolic 51–59; PULSE 57–86; RESP 16–18
[2018-08-26] MEDS: PIPER-TAZO 2.25 GM (PMX) 50 ML IVPB SCH ×3 (05:30→21:33)
[2018-08-26] MEDS: PANTOPRAZOLE (EC) 40 MG TAB PO SCH (06:36)
[2018-08-26] MEDS: ONDANSETRON 4 MG INJ IV PRN (09:21)
[2018-08-26] MEDS: FOLIC ACID 1 MG TAB PO SCH (09:24)
[2018-08-26] MEDS: predniSONE 5 MG TAB PO SCH (09:24)
[2018-08-26] MEDS: FERROUS SULFATE (EC) 325 MG TAB PO SCH ×2 (09:24→21:34)
[2018-08-26] MEDS: ASPIRIN (EC) 81 MG TAB PO SCH (09:24)
[2018-08-26] MEDS: HEPARIN 5,000 UNIT/1 ML VIAL SC SCH ×2 (09:29→21:46)
[2018-08-26] MEDS: VANCOMYCIN 500 MG (PMX) 100 ML IVPB SCH (11:48)
[2018-08-26] MEDS: SOD CHLORIDE 0.45% 1,000 ML IV SCH (18:01)
--- NOTE | 2018-08-26 18:48 | PN ---
Date/Time of Note Date/Time of Note DATE: 08/26/18 TIME: 18:47 Assessment/Plan VTE Prophylaxis Risk score (from Ns)>0 risk: 4 SCD applied (from Ns): No SCD contraindicated: other (no) Pharmacological prophylaxis: heparin Lines/Catheters IV Catheter Type (from [facility]): Peripheral IV Urinary Cath still in place: No Assessment/Plan Assessment/Plan 88-year-old female coming in with weakness diarrhea, nausea vomiting for the last 3 to 4 days, found with renal insufficiency and systemic inflammatory response syndrome secondary to upper respiratory infection. # SIRS -slowly improving as white blood cell count is trending down, likely secondary to pneumonia which is causing her weakness and dehydration symptoms along with likely her nausea vomiting symptoms. -For now continue low-dose IV fluids, broad-spectrum antibodies, -Follow-up recommendations from PT OT and speech therapy consults as well, Tylenol PRN pain fevers -Monitor labs daily including CBC # VIANNEY -likely secondary to the SIRS and pneumonia, prerenal, again BUN and creatinine are trending down now -Monitor BUN/creatinine levels, continue IV fluids -If for some reason worsens, consider renal consult #Rheumatoid arthritis: -Continue steroids, monitor for now, PT consult #Asthma: No present issues -Monitor, duo nebs as needed #Osteoporosis: No present issues -Again, pending PT, OT eval, pain medicines as needed #Likely high cholesterol: -Follow-up with panel, continue statin Result Diagram: 08/26/18 0551 08/26/18 0551 Subjective 24 Hr Interval Summary Free Text/Dictation No acute overnight events. Patient feeling well. Still very poor appetite. Seen by PT and OT today. Exam/Review of Systems Exam Vitals Vital Signs Date Temp Pulse Resp B/P (MAP) Pulse Ox O2 O2 Flow FiO2 Time Delivery Rate 08/26/18 98.0 78 18 109/57 98 16:11 (74) 08/24/18 Room Air 13:56 Intake and Output 08/25/18 08/25/18 08/26/18 1515:00 23:00 07:00 IntakeIntake Total 150 ml 650 ml 1150 ml BalanceBalance 150 ml 650 ml 1150 ml Exam Gen: Lying in bed, no acute distress Head: Atraumatic Eyes: Normal Conjunctiva ENT: Normal External Ears, Nose and Mouth. Neck: Full range of motion. No meningismus. Resp: Clear to auscultation bilaterally Cardio: Regular rate and rhythm, no murmurs Abd: Soft, non tender, non distended. Normal bowel sounds Ext: No cyanosis, or edema Results Results 24hrs Laboratory Tests Test 08/26/18 05:51 White Blood Count 9.8 # Red Blood Count 3.36 L Hemoglobin 10.5 L Hematocrit 31.1 L Mean Corpuscular Volume 92.6 Mean Corpuscular Hemoglobin 31.3 Mean Corpuscular Hemoglobin Concent 33.8 Red Cell Distribution Width 14.0 Platelet Count 245 Mean Platelet Volume 9.8 Immature Granulocytes % 1.500 H Neutrophils % 48.7 Lymphocytes % 34.7 Monocytes % 14.1 H Eosinophils % 0.8 Basophils % 0.2 Nucleated Red Blood Cells % 0.0 Immature Granulocytes # 0.150 H Neutrophils # 4.8 Lymphocytes # 3.4 H Monocytes # 1.4 H Eosinophils # 0.1 Basophils # 0.0 Nucleated Red Blood Cells # 0.0 Sodium Level 137 Potassium Level 4.0 Chloride Level 104 Carbon Dioxide Level 29 Anion Gap 4 L Blood Urea Nitrogen 20 # Creatinine 0.94 Est Glomerular Filtrat Rate mL/min Glucose Level 85 Calcium Level 7.2 L Medications Medication Current Medications IV Flush (NS 3 ml) 3 ml PER PROTOCOL IV ; Start 08/24/18 at 13:30 Ondansetron HCl (Zofran Inj) 4 mg Q6H PRN IV NAUSEA/VOMITING Last administered on 08/26/18at 09:21; Admin Dose 4 MG; Start 08/24/18 at 13:30 Acetaminophen (Tylenol Tab) 650 mg Q6H PRN PO .PAIN 1-3 OR TEMP; Start 08/24/18 at 13:30 Acetaminophen/ Hydrocodone Bitart ([place] (5/325)) 1 tab Q6H PRN PO .MOD PAIN 4- 6; Start 08/24/18 at 13:30 Morphine Sulfate (morphine) 2 mg Q4H PRN IV .SEVERE PAIN 7-10; Start 08/24/18 at 13:30 Docusate Sodium (Colace) 100 mg Q12H PRN PO .CONSTIPATION; Start 08/24/18 at 13:30 Magnesium Hydroxide (Milk Of Mag) 30 ml DAILY PRN PO .CONSTIPATION; Start 08/24/18 at 13:30 Heparin Sodium (Porcine) (Heparin (5000 Units/1ml)) 5,000 unit Q12 SC Last administered on 08/26/18 09:29; Admin Dose 5,000 UNIT; Start 08/24/18 at 21:00 Sodium Chloride 1,000 ml @ 75 mls/hr [id number] IV Last administered on 08/26/18 18:01; Admin Dose 75 MLS/HR; Start 08/24/18 at 13:09 Lorazepam (Ativan) 0.5 mg Q6H PRN IV ANXIETY; Start 08/24/18 at 13:30 Albuterol/ Ipratropium (Duoneb) 3 ml Q4H RESP THERAPY PRN HHN SHORTNESS OF B REATH; Start 08/24/18 at 13:30 Piperacillin Sod/ Tazobactam Sod 50 ml @ 200 mls/hr Q8H IVPB Last administered on 08/26/18 14:14; Admin Dose 200 MLS/HR; Start 08/24/18 at 13:30 Vancomycin HCl (Vanco Iv Per Pharmacy) VANCOMYCIN PER PHARMACY NOTE XX ; Start 08/24/18 at 13:30 Hydralazine HCl (Apresoline) 10 mg Q6H PRN IV ELEVATED BLOOD PRESSURE; Start 08/24/18 at 13:30 Nitroglycerin (Nitroglycerin (Sl Tab) 0.4 Mg) 1 tab Q5M PRN SL ANGINA; Start 08/24/18 at 13:30 Aspirin (Halfprin) 81 mg DAILY PO Last administered on 08/26/18 09:24; Admin Dose 81 MG; Start 08/25/18 at 09:00 Ferrous Sulfate (Ferrous Sulfate (Ec)) 325 mg BID PO Last administered on 08/26/18 09:24; Admin Dose 325 MG; Start 08/24/18 at 21:00 Folic Acid (Folic Acid) 1 mg DAILY PO Last administered on 08/26/18 09:24; Admin Dose 1 MG; Start 08/25/18 at 09:00 Prednisone (Prednisone) 5 mg DAILY PO Last administered on 08/26/18 09:24; Admin Dose 5 MG; Start 08/25/18 at 09:00 Pantoprazole (Protonix Tab) 40 mg DAILY@06 PO Last administered on 08/26/18 06:36; Admin Dose 40 MG; Start 08/25/18 at 06:00 Vancomycin HCl 100 ml @ 100 mls/hr Q24H IVPB Last administered on 08/26/18at 11:48; Admin Dose 100 MLS/HR; Start 08/25/18 at 12:00 Miscellaneous Information (Pending [facility] Order For Wound Care) This patient bethea... PRN PRN XX WOUND CARE; Start 08/24/18 at 18:30 Miscellaneous Information (*Rx Drug Level Order Reminder*) VANCO TROUGH ON 08/14... 1100 ONCE XX ; Start 08/27/18 at 11:00; Stop 08/27/18 at 11:01 AILYN VALDEZ MD August 26, 2018 18:48
[2018-08-27] VITALS (9 sets, daily range): BP systolic 102–119; BP diastolic 50–68; PULSE 63–127; RESP 18
[2018-08-27] MEDS: PIPER-TAZO 2.25 GM (PMX) 50 ML IVPB SCH (05:25)
[2018-08-27] MEDS: PANTOPRAZOLE (EC) 40 MG TAB PO SCH (05:25)
[2018-08-27] MEDS: SOD CHLORIDE 0.45% 1,000 ML IV SCH (07:49)
[2018-08-27] MEDS: FERROUS SULFATE (EC) 325 MG TAB PO SCH (10:09)
[2018-08-27] MEDS: ASPIRIN (EC) 81 MG TAB PO SCH (10:09)
[2018-08-27] MEDS: FOLIC ACID 1 MG TAB PO SCH (10:09)
[2018-08-27] MEDS: predniSONE 5 MG TAB PO SCH (10:09)
[2018-08-27] MEDS: HEPARIN 5,000 UNIT/1 ML VIAL SC SCH (10:16)
[2018-08-27] MEDS ORDERED: LEVO750T8 PO (12:07)
--- NOTE | 2018-08-27 12:10 | PDOCDIS ---
Discharge Instructions DIAGNOSIS Discharge Diagnosis Community-acquired pneumonia CONDITION [id number] Patient Condition: [id number] Good HOME CARE INSTRUCTIONS: [id number] Diet Instructions: [id number] Regular ACTIVITY: [id number] Activity Restrictions: [id number] No Restrictions FOLLOW UP/APPOINTMENTS Follow-up Plan 1. Take all medications as prescribed. Take 7 days of levofloxacin, an antibiotic. This was sent to [facility] on [facility]. 2. See your primary care doctor in 1-2 weeks. 1. [place] todos los medicamentos segn lo prescrito. Raimundo 7 garcia de levofloxacin, un antibitico. [place] fue enviado a [facility] en [place] [facility]. 2. Consulte a [facility] prim[facility] en 1-2 semanas. AILYN VALDEZ MD August 27, 2018 12:10
[2018-08-27] MEDS: VANCOMYCIN 500 MG (PMX) 100 ML IVPB SCH (12:32)
--- NOTE | 2018-08-27 17:58 | DS ---
Date/Time of Note Date/Time of Note DATE: 08/27/18 TIME: 17:56 Discharge Summary Admission/Discharge Info Admit Date/Time August 24, 2018 at 09:47 Discharge Date/Time August 27, 2018 at 15:20 Discharge Diagnosis Community-acquired pneumonia Patient Condition: Good Hx of Present Illness 80-year-old female past medical history hard of hearing, rheumatoid arthritis, also arthritis, prior hyponatremia, high cholesterol, asthma who presents with weakness and dehydration along with nausea vomiting for the last 4 days. Per family member, patient apparently fell at home last Sunday as she lives by herself she called her granddaughter who came and watched her for the another day or so. Patient took medications over the next 3 days such as Advil with minimal relief of symptoms. She also had decreased p.o. intake and decreased appetite for the last 1 to 2 days and also had some diarrhea. Family gave her Imodium with some relief of those symptoms. Patient was still feeling weak overall so decided to come into the ER. When she arrived she was found with elevated white blood cell count 24.3. Also showing signs of renal insufficiency as creatinine was significantly elevated. She received some IV fluids, pain control medications, and IV antibiotics in the ER. Hospital Course The patient was continued on empiric antibiotics. CXR was done showing interstitial infiltrates concerning for pneumonia. Blood culture was negative. Urine culture was contaminated. She was seen by physical and occupational therapy and was able to ambulate well. She will be discharged on levofloxacin for pneumonia. She will go to her daughter's house. SNF was offered but patient refused. Home Meds Active Scripts Levofloxacin* (Levofloxacin*) 750 Mg Tablet, 750 MG PO DAILY, #7 TAB Prov:AILYN VALDEZ MD 08/27/18 Reported Medications Docusate Sodium* (Doc-Q-Lace*) 100 Mg Capsule, 100 MG PO DAILY, CAP 08/24/18 Ondansetron Hcl* (Zofran*) 4 Mg Tablet, 4 MG PO TID, TAB 08/24/18 Omeprazole* (Omeprazole*) 20 Mg Capsule.dr, 20 MG PO DAILY, #30 CAP 08/24/18 Prednisone* (Prednisone*) 5 Mg Tab, 5 MG PO DAILY, TAB 08/24/18 Folic Acid* (Folic Acid*) 1 Mg Tablet, 1 MG PO DAILY, TAB 08/24/18 Ferrous Sulfate* (Ferrous Sulfate*) 325 Mg Tabec, 325 MG PO BID, TAB 08/24/18 Ergocalciferol (Vitamin D2) (VITAMIN D2) 50,000 Unit Capsule, 45048 UNIT PO Q MON, CAP 08/24/18 Aspirin* (Aspirin* EC) 81 Mg Tablet.dr, 81 MG PO DAILY, TAB 08/24/18 Losartan-Hydrochlorothiazide (Losartan-HCTZ) 50-12.5 Mg Tab, 1 TAB PO DAILY, TAB 08/24/18 Discontinued Reported Medications Infliximab (Remicade) 100 Mg Soln, 100 MG IV 11/23/17 Alendronate Sodium* (Fosamax*) 70 Mg Tablet, 70 MG PO Q7D, #4 TAB 11/23/17 Prednisone* (Prednisone*) 5 Mg Tab, 5 MG PO DAILY, TAB 11/23/17 Ferrous Sulfate* (Ferrous Sulfate*) 325 Mg Tabec, 325 MG PO BID, TAB 11/23/17 Aspirin Ec (Aspir 81) 81 Mg Tablet.dr, 81 MG PO DAILY, #30 TAB 11/23/17 Calcium Carbonate/Vitamin D3* (Os-Tate 500+D*) 1 Tab Tablet, 1 TAB PO BID, TAB 07/19/15 Beclomethasone Dip (Qvar 80) 1 Puff Inha, 1 PUFF INH BID, #1 INHALER RINSE MOUTH AFTER EACH USE 07/19/15 Folic Acid* (Folic Acid*) 1 Mg Tablet, 1 MG PO DAILY, TAB 07/19/15 Ergocalciferol* (Drisdol* (Vitamin D2)) 50,000 Unit Capsule, 74080 UNIT PO Q7D, CAP take 1 tablet by mouth once a week (every Mondays) 07/19/15 Simvastatin* (Zocor*) 10 Mg Tablet, 10 MG PO QHS, #30 TAB 07/19/15 Albuterol Sulfate* (Proair HFA*) 8.5 Gm Hfa.aer.ad, 2 PUFF INH Q4H PRN for WHEEZING AND SOB, #1 INHALER 07/19/15 Discontinued Scripts Docusate Sodium* (Colace*) 100 Mg Capsule, 100 MG PO TID, #30 CAP Prov:STACIE QUINONES MD 07/24/15 Follow-up Plan 1. Take all medications as prescribed. Take 7 days of levofloxacin, an antibiotic. This was sent to [facility] on and . 2. See your primary care doctor in 1-2 weeks. 1. [place] todos los medicamentos segn lo prescrito. Raimundo 7 garcia de levofloxacin, un antibitico. [place] fue enviado a [facility] en y . 2. Consulte a [facility] atencin primaria en 1-2 semanas. Primary Care Provider Mer Varghese MD Time spent on discharge: > 30 minutes Pending Labs Laboratory Tests Test 08/27/18 05:57 08/27/18 10:42 White Blood Count 7.9 10^3/ul (4.8-10.8) Red Blood Count 3.58 10^6/ul (4.20-5.40) Hemoglobin 11.0 g/dl (12.0-16.0) Hematocrit 33.1 % (37.0-47.0) Mean Corpuscular Volume 92.5 fl (82.0-101.0) Mean Corpuscular Hemoglobin 30.7 pg (29.0-33.0) Mean Corpuscular 33.2 g/dl (32.0-37.0) Hemoglobin Concent Red Cell Distribution Width 14.0 % (11.5-14.5) Platelet Count 262 10^3/UL (140-415) Mean Platelet Volume 9.6 fl (7.4-10.4) Immature Granulocytes % 1.800 % (0.001-0.429) Neutrophils % % (39.0-77.0) Segmented Neutrophils 49 % (39-77) % (Manual) Band Neutrophils % (Manual) 1 % (0-4) Lymphocytes % % (15.0-51.0) Lymphocytes % (Manual) 31 % (15-51) Reactive Lymphocytes 4 % (0-0) % (Manual) Monocytes % % (0.0-11.0) Monocytes % (Manual) 11 % (0-11) Eosinophils % % (0.0-7.0) Eosinophils % (Manual) 1 % (0-7) Basophils % % (0.0-2.0) Metamyelocytes % (manual) 3 % (0-0) Nucleated Red Blood Cells % 0.0 /100WBC (0.0-0.0) Immature Granulocytes # 0.140 10^3/ul (0.0-0.031) Neutrophils # 10^3/ul (1.6-7.5) Neutrophils # (Manual) 3.9 10^3/ul (1.6-7.5) Band Neutrophils # 0.0 10^3/ul (0.0-0.6) Lymphocytes (Manual) 2.4 10^3/ul (0.8-2.9) Lymphocytes # 10^3/ul (0.8-2.9) Reactive Lymphocytes # 0.3 10^3/ul (0.0-0.0) Monocytes # 10^3/ul (0.3-0.9) Monocytes # (Manual) 0.8 10^3/ul (0.3-0.9) Eosinophils # 10^3/ul (0.0-0.5) Basophils # 10^3/ul (0.0-0.1) Metamyelocytes # 0.2 10^3/ul (0.0-0.0) Nucleated Red Blood Cells # 10^3/ul (0.0-0.0) Platelet Estimate NORMAL Hypochromasia 1+ (0-0) Anisocytosis 1+ (0-0) Microcytosis 1+ (0-0) Sodium Level 136 mmol/L (135-144) Potassium Level 3.4 mmol/L (3.5-5.1) Chloride Level 101 mmol/L (97-110) Carbon Dioxide Level 29 mmol/L (21-31) Anion Gap 6 (5-13) Blood Urea Nitrogen 13 mg/dl (7-20) Creatinine 0.72 mg/dl (0.44-1.00) Est Glomerular Filtrat mL/min (>60) Rate mL/min Glucose Level 78 mg/dl (70-220) Calcium Level 7.6 mg/dl (8.4-10.2) Vancomycin Level Trough 6.4 ug/ml (10.0-20.0) AILYN VALDEZ MD August 27, 2018 17:58
[2018-08-28] MEDS ORDERED: VANCOMYCIN 500 MG (PMX) 100 ML IVPB SCH
== END 2018-08-27 15:20 | disposition home or self-care (01) | DRG 194 ==
LOC: E/R 04:55 → TEL 09:47 → SUATTDRO 13:06
PROVIDERS: ADMIT Hospitalist; ATTEND Internal Medicine
DX: J18.9 Pneumonia, unspecified organism (principal); N17.9 Acute kidney failure, unspecified; E86.0 Dehydration; M81.0 Age-related osteoporosis without current pathological fracture; M06.9 Rheumatoid arthritis, unspecified; I10 Essential (primary) hypertension; J45.909 Unspecified asthma, uncomplicated; E78.00 Pure hypercholesterolemia, unspecified; Z96.653 Presence of artificial knee joint, bilateral; Z91.81 History of falling; Z90.49 Acquired absence of other specified parts of digestive tract
CPT/HCPCS: 36415; 71045; 80048; 80053; 80061; 80202; 81001; 83036; 83605; 83690; 83735; 84100; 84439; 84443; 84484; 85025; 85610; 85730; 87086; 92610; 93005; 93306; 96374; 96375; 97116; 97162; 97167; 97530; 97535; J0692; J1644; J1720; J2405; J2543; J3370; J7030; J7512